=== PATIENT | male | born 1935 | race Caucasian/White ===

== ENCOUNTER 2016-07-24 13:34 | Emergency (ER) | payer OTHER ==
[~2016-07-24] VITALS: Wt 81.6 kg
[~2016-07-24 13:34] MED LIST: BACTROBAN CREAM15 GM PO; KEFLEX500 MG PO
== END 2016-07-24 14:53 | disposition home or self-care (01) ==
LOC: ED 13:34
DX: T18.108A Unspecified foreign body in esophagus causing other injury, initial encounter (principal); Z95.1 Presence of aortocoronary bypass graft; X58.XXXA Exposure to other specified factors, initial encounter; Y93.89 Activity, other specified; Y92.89 Other specified places as the place of occurrence of the external cause; Y99.9 Unspecified external cause status

== ENCOUNTER → 2016-09-23 | Outpatient (CLI) | payer OTHER | END | disposition home or self-care (01) | LOC: LAB 08:54 | DX: N39.0 Urinary tract infection, site not specified (principal) ==

== ENCOUNTER 2016-12-16 08:50 | Emergency (ER) | payer OTHER ==
[~2016-12-16] VITALS: Ht 177.8 cm; Wt 86.2 kg
[2016-12-16] MEDS ORDERED: CEPHALEXIN500 M1 PO (09:18)
[2016-12-16] MEDS ORDERED: SEPTDS PO (09:18)
== END 2016-12-16 09:32 | disposition home or self-care (01) ==
LOC: ED 08:50
DX: L02.212 Cutaneous abscess of back [any part, except buttock and flank] (principal)

== ENCOUNTER → 2017-04-11 | Outpatient (CLI) | payer OTHER ==
[~2017-04-11] MED LIST changes: +CEPHALEXIN500 M1 PO; +SEPTDS PO
[2017-04-11 13:32] LABS: BASO % 0.3 % (0.0-1.0); EOS # 0.1 10*3/uL (0.0-0.4); EOS % 1.3 % (1.0-4.0); HEMATOCRIT 43.6 % (42.0-52.0); HEMOGLOBIN 14.6 g/dl (14.0-18.0); LYMPH # 1.5 10*3/uL (1.3-4.4); LYMPH % 17.2 % (27.0-41.0); MEAN CELL VOLUME 87.4 fl (80.0-94.0); MEAN CORPUSCULAR HGB 29.3 pg (27.0-31.0); MEAN CORPUSCULAR HGB CONC 33.5 g/dl (33.0-37.0); MEAN PLATELET VOLUME 10.9 fl (9.6-12.3); MONO # 0.9 10*3/uL (0.1-1.0); MONO % 9.9 % (3.0-9.0); NEUT # 6.2 10*3/uL (2.3-7.9); PLATELET COUNT AUTOMATED 147 10*3/uL (130-400); RED BLOOD COUNT 4.99 10*6/uL (4.50-5.90); RED CELL DISTRI WIDTH 14.6 % (0-14.5); WHITE BLOOD COUNT 8.7 10*3/uL (4.8-10.8)
[2017-04-11 14:03] LABS: ALBUMIN 3.5 gm/dl (3.1-4.5); ALKALINE PHOSPHATASE 58 U/L (45-117); BUN 17 mg/dl (7-24); CHLORIDE 108 mmol/L (98-107); CREATININE 1.35 mg/dL (0.70-1.30); POTASSIUM 3.8 mmol/L (3.5-5.1); SGOT/AST 19 IU/L (3-35); SGPT/ALT 27 U/L (12-78); SODIUM 141 mmol/L (136-145); TOTAL PROTEIN 7.1 gm/dL (6.4-8.2)
== END | disposition home or self-care (01) ==
LOC: LAB 13:13
PROVIDERS: Urology
DX: D40.0 Neoplasm of uncertain behavior of prostate (principal); I10 Essential (primary) hypertension

== ENCOUNTER 2017-12-25 09:42 | Emergency (ER) | payer OTHER ==
[~2017-12-25] VITALS: Ht 177.8 cm; Wt 81.6 kg
[2017-12-25] MEDS ORDERED: FINASTERIDE5 M1 PO (10:44)
[2017-12-25] MEDS ORDERED: LISINOPRIL2.5 MG PO (10:45)
[2017-12-25] MEDS ORDERED: AMARYL4 MG PO (10:45)
[2017-12-25] MEDS ORDERED: LEVOTHYROXINE50 MCG PO (10:45)
[2017-12-25] MEDS ORDERED: TOPROL XL50 M1 PO (10:46)
[2017-12-25] MEDS ORDERED: NORCO 5-325 TA1 EACH PO (11:32)
== END 2017-12-25 11:36 | disposition home or self-care (01) ==
LOC: ED 09:42
DX: S86.912A Strain of unspecified muscle(s) and tendon(s) at lower leg level, left leg, initial encounter (principal); M25.462 Effusion, left knee; Z79.899 Other long term (current) drug therapy; Z79.84 Long term (current) use of oral hypoglycemic drugs; X50.1XXA Overexertion from prolonged static or awkward postures, initial encounter; Y93.89 Activity, other specified; Y92.89 Other specified places as the place of occurrence of the external cause; Y99.8 Other external cause status

== ENCOUNTER 2018-01-22 12:17 | Emergency (ER) | payer OTHER ==
[~2018-01-22] VITALS: Ht 175.2 cm; Wt 75.7 kg
[~2018-01-22 12:17] MED LIST changes: +AMARYL4 MG PO; +FINASTERIDE5 M1 PO; +LEVOTHYROXINE50 MCG PO; +LISINOPRIL2.5 MG PO; +NORCO 5-325 TA1 EACH PO; +TOPROL XL50 M1 PO
[2018-01-22 13:33] LABS: BILIRUBIN NEGATIVE (NEGATIVE); BLOOD 1+ (NEGATIVE); CLARITY CLOUDY (CLEAR); COLOR YELLOW (YELLOW); GLUCOSE 2+ (NEGATIVE); KETONE TRACE (NEGATIVE); LEUKO ESTERASE 1+ (NEGATIVE); NITRITE NEGATIVE (NEGATIVE); SPECIFIC GRAVITY 1.025 (1.005-1.030); UROBILINOGEN 0.2 E.U./dl (0.2-1.0)
[2018-01-22 13:43] LABS: BACTERIA 2+; RBC 31-40 rbc/hpf (0-2); WBC TNTC wbc/hpf (0-5)
[2018-01-22] MEDS ORDERED: CEFUROXIME AXE500 MG PO (14:07)
[2018-01-22] MEDS ORDERED: LOTRIMIN 1%15 GM PO (14:17)
== END 2018-01-22 14:28 | disposition home or self-care (01) ==
LOC: ED 12:17
PROVIDERS: Nurse Practitioner Family
DX: N39.0 Urinary tract infection, site not specified (principal); Z79.84 Long term (current) use of oral hypoglycemic drugs; Z79.899 Other long term (current) drug therapy